=== PATIENT | female | born 1940 | race Caucasian/White ===

== ENCOUNTER 2019-03-23 13:21 | Inpatient (IN) ==
[2019-03-23] MEDS ORDERED: dilTIAZem Drip 125 MG/125 ML PREMIX IV ONE (13:45)
[2019-03-23] MEDS ORDERED: DILTIAZEM 25 MG/5 ML VIAL IV ONE (13:46)
[2019-03-23] MEDS ORDERED: DILTIAZEM 50 MG/10 ML VIAL IV STA (13:57)
[2019-03-23 14:03] LABS: Basophils # 0.1 10*3/uL (0.0-0.2); Basophils % 0.9 % (0.0-0.8); Eosinophils % 0.4 % (0.00-10.9); Hematocrit 44.4 VOL% (35.7-47.0); Hemoglobin 13.3 GM/DL (12.0-16.0); Immature Granulocytes % 0.6 %; Immature Granulocytes Absolute 0.05 #; Lymphocytes # 1.7 10*3/uL (1.4-4.0); Lymphocytes % 18.3 % (21.3-54.2); Mean Corpuscular Volume 80.9 FL (87-102); Mean Platelet Volume 12.3 FL (9.6-12.0); Monocytes % 8.6 % (1.7-12.7); NRBC # 0.02 10*3/uL; Neutrophils % 71.2 % (38.7-73.9); Platelet Count 245 T/CUMM (130-400); Red Blood Count 5.49 MC/CUMM (3.8-5.5); Red Cell Distribution Width 18.6 % (9.3-17.3); White Blood Count 9.1 T/CUMM (4-12)
[2019-03-23] MEDS ORDERED: SODIUM CHLORIDE 0.9% 500 ML IV STA (14:04)
[2019-03-23] MEDS: dilTIAZem Drip 125 MG/125 ML PREMIX IV SCH (14:05)
[2019-03-23 14:13] LABS: INR 1.4; PT Patient Result 14.7 SECS
[2019-03-23 14:59] LABS: Osmolality,Calculated 283.3 MOS/KG (273-304); Total Protein 7.6 G/DL (6.4-8.3)
[2019-03-23 15:15] LABS: Calcium 9.2 MG/DL (8.5-10.1)
[2019-03-23] MEDS ORDERED: cloNIDine 0.3 MG/24 HR PATCH TRANSDERM SCH (18:30)
[2019-03-23] MEDS: OXYBUTYNIN XL 15 MG TABLET PO SCH (21:07)
[2019-03-23] MEDS: PRIMIDONE 250 MG TABLET PO SCH (21:07)
[2019-03-23] MEDS: APIXABAN 5 MG TABLET PO SCH (21:07)
[2019-03-24 04:49] LABS: Basophils # 0.1 10*3/uL (0.0-0.2); Basophils % 0.8 % (0.0-0.8); Eosinophils # 0.2 10*3/uL (0.0-0.87); Eosinophils % 4.1 % (0.00-10.9); Hematocrit 35.9 VOL% (35.7-47.0); Hemoglobin 10.8 GM/DL (12.0-16.0); Immature Granulocytes % 0.2 %; Immature Granulocytes Absolute 0.01 #; Lymphocytes # 1.7 10*3/uL (1.4-4.0); Lymphocytes % 28.4 % (21.3-54.2); Mean Corpuscular HGB Conc 30.1 GM/DL (32-36); Mean Corpuscular Volume 80.5 FL (87-102); Monocytes % 16.4 % (1.7-12.7); Neutrophils % 50.1 % (38.7-73.9); Platelet Count 177 T/CUMM (130-400); Red Blood Count 4.46 MC/CUMM (3.8-5.5); Red Cell Distribution Width 17.9 % (9.3-17.3); White Blood Count 5.9 T/CUMM (4-12)
[2019-03-24 05:26] LABS: Risk Ratio 2.55; Thyroid Stimulating Hormone 6.4 uIU/ml (0.358-3.74)
[2019-03-24 05:35] LABS: Band Neutrophils 6 % (0-10); Eosinophils 4 % (0-10); Lymphocytes 32 % (20-55); Segmented Neutrophils 45 % (50-85); Total Cells Counted 100
[2019-03-24 05:36] LABS: Anisocytosis 1+; Ovalocytes 1+; Platelet Estimate Adequate
[2019-03-24] MEDS: dilTIAZem Drip 125 MG/125 ML PREMIX IV SCH ×2 (06:36→13:38)
[2019-03-24] MEDS: LEVOTHYROXINE 125 MCG TABLET PO SCH (09:01)
[2019-03-24] MEDS: CETIRIZINE 10 MG TABLET PO SCH (09:01)
[2019-03-24] MEDS: ESCITALOPRAM 10 MG TABLET PO SCH (09:01)
[2019-03-24] MEDS: PANTOPRAZOLE 20 MG TABLET PO SCH (09:01)
[2019-03-24] MEDS: OXYBUTYNIN XL 15 MG TABLET PO SCH ×2 (09:01→21:30)
[2019-03-24] MEDS: DONEPEZIL 10 MG TABLET PO SCH (09:01)
[2019-03-24] MEDS: FEXOFENADINE 180 MG TABLET PO SCH (09:01)
[2019-03-24] MEDS: SIMVASTATIN 20 MG TABLET PO SCH (09:01)
[2019-03-24] MEDS: DILTIAZEM CD 120 MG CAPSULE PO SCH (09:01)
[2019-03-24] MEDS: APIXABAN 5 MG TABLET PO SCH ×2 (09:01→21:30)
[2019-03-24] MEDS: ASPIRIN EC 81 MG TABLET PO SCH (10:54)
[2019-03-24 11:03] LABS: Calcium 8.6 MG/DL (8.5-10.1); Osmolality,Calculated 283.3 MOS/KG (273-304)
[2019-03-24 14:05] LABS: Apearance,Urine CLEAR (Clear); Bacteria,Urine Moderate /HPF (Few); Bilirubin,Urine Negative (Negative); Blood, Urine Negative (Negative); Glucose,Urine (UA) Negative (Negative); Ketones,Urine 5 mg/dL (Negative); Mucus,Urine Occasional /LPF (Occasional); Nitrite,Urine Positive (Negative); Protein,Urine 30 MG/DL; RBC,Urine 4 /HPF (0-4); Squamous Epithelial Cell,Urine Occasional /HPF (0-10); Urine Specific Gravity 1.058 (1.001-1.035); Urine Urobilinogen < 2.0 EU/DL (0.2-1.0); WBC,Urine 69 /HPF (0-6)
[2019-03-24 14:06] LABS: Urine Color Yellow (Yellow)
[2019-03-24] MEDS: FUROSEMIDE 40 MG/4 ML VIAL IV SCH (15:50)
[2019-03-24] MEDS: ACETAMINOPHEN/CODEINE 300-30 MG TABLET PO PRN (15:54)
[2019-03-24] MEDS: SOTALOL 80 MG TABLET PO SCH (21:30)
[2019-03-24] MEDS: PRIMIDONE 250 MG TABLET PO SCH (21:30)
[2019-03-25 04:48] LABS: Basophils % 0.9 % (0.0-0.8); Eosinophils # 0.3 10*3/uL (0.0-0.87); Eosinophils % 5.6 % (0.00-10.9); Hematocrit 36.8 VOL% (35.7-47.0); Hemoglobin 11.3 GM/DL (12.0-16.0); Immature Granulocytes % 0.2 %; Immature Granulocytes Absolute 0.01 #; Lymphocytes # 1.3 10*3/uL (1.4-4.0); Lymphocytes % 27.1 % (21.3-54.2); Mean Corpuscular HGB Conc 30.7 GM/DL (32-36); Mean Corpuscular Volume 79.8 FL (87-102); Mean Platelet Volume 12.8 FL (9.6-12.0); Monocytes % 13.3 % (1.7-12.7); Neutrophils % 52.9 % (38.7-73.9); Platelet Count 197 T/CUMM (130-400); Red Blood Count 4.61 MC/CUMM (3.8-5.5); Red Cell Distribution Width 18.1 % (9.3-17.3); White Blood Count 4.7 T/CUMM (4-12)
[2019-03-25 05:14] LABS: Calcium 8.2 MG/DL (8.5-10.1); Osmolality,Calculated 284.1 MOS/KG (273-304)
[2019-03-25 05:16] LABS: Risk Ratio 2.74; VLDL CHOLESTEROL 18.8 MG/DL
[2019-03-25] MEDS: cefTRIAXone 1,000 MG in SYRINGE 1 EACH IV SCH (08:22)
[2019-03-25] MEDS: FUROSEMIDE 40 MG/4 ML VIAL IV SCH ×2 (08:24→15:36)
[2019-03-25] MEDS: CETIRIZINE 10 MG TABLET PO SCH (08:25)
[2019-03-25] MEDS: SOTALOL 80 MG TABLET PO SCH ×2 (08:25→20:53)
[2019-03-25] MEDS: FEXOFENADINE 180 MG TABLET PO SCH (08:26)
[2019-03-25] MEDS: SACUBITRIL/VALSARTAN 49-51 MG TABLET PO SCH ×2 (08:26→20:54)
[2019-03-25] MEDS: ESCITALOPRAM 10 MG TABLET PO SCH (08:27)
[2019-03-25] MEDS: DILTIAZEM CD 120 MG CAPSULE PO SCH (08:27)
[2019-03-25] MEDS: DONEPEZIL 10 MG TABLET PO SCH (08:28)
[2019-03-25] MEDS: PANTOPRAZOLE 20 MG TABLET PO SCH (08:29)
[2019-03-25] MEDS: LEVOTHYROXINE 125 MCG TABLET PO SCH (08:30)
[2019-03-25] MEDS: APIXABAN 5 MG TABLET PO SCH ×2 (08:30→20:53)
[2019-03-25] MEDS: ASPIRIN EC 81 MG TABLET PO SCH (08:30)
[2019-03-25] MEDS: SIMVASTATIN 20 MG TABLET PO SCH (08:30)
[2019-03-25] MEDS: POTASSIUM CHLORIDE 20 MEQ TABLET PO SCH ×2 (08:31→21:01)
[2019-03-25] MEDS: OXYBUTYNIN XL 15 MG TABLET PO SCH ×2 (08:38→20:54)
[2019-03-25] MEDS ORDERED: POTASSIUM CHLORIDE 20 MEQ TABLET PO ONE (11:37)
[2019-03-25] MEDS: CYCLOBENZAPRINE 10 MG TABLET PO PRN (11:56)
[2019-03-25] MEDS: dilTIAZem Drip 125 MG/125 ML PREMIX IV SCH (13:32)
[2019-03-25] MEDS: ACETAMINOPHEN/CODEINE 300-30 MG TABLET PO PRN (16:25)
[2019-03-25] MEDS: PRIMIDONE 250 MG TABLET PO SCH (21:01)
[2019-03-26 04:51] LABS: Calcium 8.2 MG/DL (8.5-10.1); Osmolality,Calculated 280.4 MOS/KG (273-304)
[2019-03-26 05:28] LABS: Risk Ratio 2.83; VLDL CHOLESTEROL 30.8 MG/DL
[2019-03-26 05:35] LABS: Basophils # 0.1 10*3/uL (0.0-0.2); Basophils % 1.2 % (0.0-0.8); Eosinophils # 0.2 10*3/uL (0.0-0.87); Eosinophils % 4.8 % (0.00-10.9); Hematocrit 46.8 VOL% (35.7-47.0); Hemoglobin 13.5 GM/DL (12.0-16.0); Immature Granulocytes % 0.2 %; Immature Granulocytes Absolute 0.01 #; Lymphocytes # 1.6 10*3/uL (1.4-4.0); Lymphocytes % 32.8 % (21.3-54.2); Mean Corpuscular HGB Conc 28.8 GM/DL (32-36); Mean Corpuscular Volume 82.8 FL (87-102); Mean Platelet Volume 11.9 FL (9.6-12.0); Monocytes % 14.5 % (1.7-12.7); Neutrophils % 46.5 % (38.7-73.9); Platelet Count 212 T/CUMM (130-400); Red Blood Count 5.65 MC/CUMM (3.8-5.5); Red Cell Distribution Width 19.2 % (9.3-17.3)
[2019-03-26] MEDS ORDERED: TUBERCULIN SKIN TEST 0.1 ML SYRINGE INTRADERM ONE (07:37)
[2019-03-26] MEDS: SOTALOL 80 MG TABLET PO SCH ×2 (08:35→20:24)
[2019-03-26] MEDS: FUROSEMIDE 40 MG/4 ML VIAL IV SCH ×2 (08:35→15:19)
[2019-03-26] MEDS: DONEPEZIL 10 MG TABLET PO SCH (08:35)
[2019-03-26] MEDS: SACUBITRIL/VALSARTAN 49-51 MG TABLET PO SCH ×2 (08:35→20:23)
[2019-03-26] MEDS: OXYBUTYNIN XL 15 MG TABLET PO SCH ×2 (08:35→20:24)
[2019-03-26] MEDS: ESCITALOPRAM 10 MG TABLET PO SCH (08:35)
[2019-03-26] MEDS: cefTRIAXone 1,000 MG in SYRINGE 1 EACH IV SCH (08:35)
[2019-03-26] MEDS: ASPIRIN EC 81 MG TABLET PO SCH (08:35)
[2019-03-26] MEDS: FEXOFENADINE 180 MG TABLET PO SCH (08:35)
[2019-03-26] MEDS: DILTIAZEM CD 120 MG CAPSULE PO SCH (08:35)
[2019-03-26] MEDS: CETIRIZINE 10 MG TABLET PO SCH (08:36)
[2019-03-26] MEDS: POTASSIUM CHLORIDE 20 MEQ TABLET PO SCH ×2 (08:36→20:24)
[2019-03-26] MEDS: LEVOTHYROXINE 125 MCG TABLET PO SCH (08:36)
[2019-03-26] MEDS: APIXABAN 5 MG TABLET PO SCH ×2 (08:36→20:24)
[2019-03-26] MEDS: SIMVASTATIN 20 MG TABLET PO SCH (08:36)
[2019-03-26] MEDS: PANTOPRAZOLE 20 MG TABLET PO SCH (08:36)
[2019-03-26] MEDS: LIDOCAINE 5% PATCH TRANSDERM SCH (08:40)
[2019-03-26] MEDS: ACETAMINOPHEN/CODEINE 300-30 MG TABLET PO PRN ×2 (09:50→15:56)
[2019-03-26] MEDS: dilTIAZem Drip 125 MG/125 ML PREMIX IV SCH ×2 (10:45→13:45)
[2019-03-26] MEDS: PRIMIDONE 250 MG TABLET PO SCH (20:23)
[2019-03-27 05:56] LABS: Calcium 8.5 MG/DL (8.5-10.1); Osmolality,Calculated 282.4 MOS/KG (273-304)
[2019-03-27] MEDS: LIDOCAINE 5% PATCH TRANSDERM SCH (08:15)
[2019-03-27] MEDS: PANTOPRAZOLE 20 MG TABLET PO SCH (08:16)
[2019-03-27] MEDS: FEXOFENADINE 180 MG TABLET PO SCH (08:16)
[2019-03-27] MEDS: cefTRIAXone 1,000 MG in SYRINGE 1 EACH IV SCH (08:16)
[2019-03-27] MEDS: FUROSEMIDE 40 MG/4 ML VIAL IV SCH ×2 (08:16→15:45)
[2019-03-27] MEDS: POTASSIUM CHLORIDE 20 MEQ TABLET PO SCH ×2 (08:16→21:46)
[2019-03-27] MEDS: ESCITALOPRAM 10 MG TABLET PO SCH (08:16)
[2019-03-27] MEDS: CETIRIZINE 10 MG TABLET PO SCH (08:17)
[2019-03-27] MEDS: APIXABAN 5 MG TABLET PO SCH ×2 (08:17→21:46)
[2019-03-27] MEDS: ASPIRIN EC 81 MG TABLET PO SCH (08:17)
[2019-03-27] MEDS: DONEPEZIL 10 MG TABLET PO SCH (08:17)
[2019-03-27] MEDS: LEVOTHYROXINE 125 MCG TABLET PO SCH (08:17)
[2019-03-27] MEDS: SACUBITRIL/VALSARTAN 49-51 MG TABLET PO SCH ×2 (08:17→21:45)
[2019-03-27] MEDS: SOTALOL 80 MG TABLET PO SCH ×2 (08:17→21:47)
[2019-03-27] MEDS: DILTIAZEM CD 120 MG CAPSULE PO SCH (08:17)
[2019-03-27] MEDS: SIMVASTATIN 20 MG TABLET PO SCH (08:17)
[2019-03-27] MEDS: OXYBUTYNIN XL 15 MG TABLET PO SCH ×2 (08:17→21:46)
[2019-03-27] MEDS: dilTIAZem Drip 125 MG/125 ML PREMIX IV SCH ×2 (15:32→15:46)
[2019-03-27] MEDS: PRIMIDONE 250 MG TABLET PO SCH (21:46)
[2019-03-28] MEDS: SACUBITRIL/VALSARTAN 49-51 MG TABLET PO SCH ×2 (08:53→21:48)
[2019-03-28] MEDS: CETIRIZINE 10 MG TABLET PO SCH (08:54)
[2019-03-28] MEDS: LEVOTHYROXINE 125 MCG TABLET PO SCH (08:54)
[2019-03-28] MEDS: APIXABAN 5 MG TABLET PO SCH ×2 (08:54→21:49)
[2019-03-28] MEDS: ESCITALOPRAM 10 MG TABLET PO SCH (08:54)
[2019-03-28] MEDS: FEXOFENADINE 180 MG TABLET PO SCH (08:54)
[2019-03-28] MEDS: PANTOPRAZOLE 20 MG TABLET PO SCH (08:55)
[2019-03-28] MEDS: DILTIAZEM CD 120 MG CAPSULE PO SCH (08:55)
[2019-03-28] MEDS: SIMVASTATIN 20 MG TABLET PO SCH (08:55)
[2019-03-28] MEDS: ASPIRIN EC 81 MG TABLET PO SCH (08:55)
[2019-03-28] MEDS: DONEPEZIL 10 MG TABLET PO SCH (08:56)
[2019-03-28] MEDS: OXYBUTYNIN XL 15 MG TABLET PO SCH ×2 (08:56→21:49)
[2019-03-28] MEDS: SOTALOL 80 MG TABLET PO SCH ×2 (08:56→21:48)
[2019-03-28] MEDS: POTASSIUM CHLORIDE 20 MEQ TABLET PO SCH ×2 (08:56→21:48)
[2019-03-28] MEDS: LIDOCAINE 5% PATCH TRANSDERM SCH (08:57)
[2019-03-28] MEDS: ACETAMINOPHEN/CODEINE 300-30 MG TABLET PO PRN ×2 (08:57→16:13)
[2019-03-28] MEDS: FUROSEMIDE 40 MG/4 ML VIAL IV SCH ×2 (08:58→16:13)
[2019-03-28] MEDS: cefTRIAXone 1,000 MG in SYRINGE 1 EACH IV SCH (09:01)
[2019-03-28] MEDS: CYCLOBENZAPRINE 10 MG TABLET PO PRN (11:35)
[2019-03-28] MEDS: dilTIAZem Drip 125 MG/125 ML PREMIX IV SCH ×2 (11:37→14:28)
[2019-03-28] MEDS: PRIMIDONE 250 MG TABLET PO SCH (21:49)
[2019-03-29 04:07] LABS: Basophils # 0.1 10*3/uL (0.0-0.2); Basophils % 0.7 % (0.0-0.8); Eosinophils # 0.3 10*3/uL (0.0-0.87); Eosinophils % 2.7 % (0.00-10.9); Hematocrit 45.6 VOL% (35.7-47.0); Immature Granulocytes % 0.3 %; Immature Granulocytes Absolute 0.03 #; Lymphocytes # 1.3 10*3/uL (1.4-4.0); Lymphocytes % 13.9 % (21.3-54.2); Mean Corpuscular HGB Conc 30.7 GM/DL (32-36); Mean Corpuscular Volume 79.2 FL (87-102); Mean Platelet Volume 12.8 FL (9.6-12.0); Neutrophils % 72.4 % (38.7-73.9); Platelet Count 277 T/CUMM (130-400); Red Blood Count 5.76 MC/CUMM (3.8-5.5); Red Cell Distribution Width 18.7 % (9.3-17.3); White Blood Count 9.4 T/CUMM (4-12)
[2019-03-29 04:27] LABS: Albumin 3.2 G/DL (3.4-5.0); Bilirubin,Total 1.3 MG/DL (0.2-1.0); Osmolality,Calculated 285.4 MOS/KG (273-304); Total Protein 7.4 G/DL (6.4-8.3)
[2019-03-29 08:06] VITALS: BP 127/72
[2019-03-29] MEDS: cefTRIAXone 1,000 MG in SYRINGE 1 EACH IV SCH (08:15)
[2019-03-29] MEDS: FUROSEMIDE 40 MG/4 ML VIAL IV SCH (08:21)
[2019-03-29] MEDS: SACUBITRIL/VALSARTAN 49-51 MG TABLET PO SCH (09:06)
[2019-03-29] MEDS: ESCITALOPRAM 10 MG TABLET PO SCH (09:07)
[2019-03-29] MEDS: DILTIAZEM CD 120 MG CAPSULE PO SCH (09:07)
[2019-03-29] MEDS: POTASSIUM CHLORIDE 20 MEQ TABLET PO SCH (09:07)
[2019-03-29] MEDS: FEXOFENADINE 180 MG TABLET PO SCH (09:07)
[2019-03-29] MEDS: APIXABAN 5 MG TABLET PO SCH (09:07)
[2019-03-29] MEDS: SIMVASTATIN 20 MG TABLET PO SCH (09:08)
[2019-03-29] MEDS: CETIRIZINE 10 MG TABLET PO SCH (09:08)
[2019-03-29] MEDS: LEVOTHYROXINE 125 MCG TABLET PO SCH (09:08)
[2019-03-29] MEDS: PANTOPRAZOLE 20 MG TABLET PO SCH (09:08)
[2019-03-29] MEDS: LIDOCAINE 5% PATCH TRANSDERM SCH (09:09)
[2019-03-29] MEDS: DONEPEZIL 10 MG TABLET PO SCH (09:20)
[2019-03-29] MEDS: CYCLOBENZAPRINE 10 MG TABLET PO PRN (09:20)
[2019-03-29] MEDS: SOTALOL 80 MG TABLET PO SCH (09:20)
[2019-03-29] MEDS: ASPIRIN EC 81 MG TABLET PO SCH (09:20)
[2019-03-29] MEDS: OXYBUTYNIN XL 15 MG TABLET PO SCH (09:20)
[2019-03-29] MEDS ORDERED: FUROSEMIDE 40 MG TABLET PO SCH (16:00)
== END 2019-03-29 11:00 | disposition swing bed (61) | DRG 308 ==
LOC: N.ED 13:21 → N.EDINP 13:21 → SUATTDRO 16:59 → N.TELEN 18:00
PROVIDERS: ADMIT Phlebology; ATTEND Internal Medicine

== ENCOUNTER 2019-04-05 21:47 | Inpatient (IN) ==
[2019-04-05 23:20] LABS: Basophils # 0.1 10*3/uL (0.0-0.2); Basophils % 0.4 % (0.0-0.8); Hematocrit 53.8 VOL% (35.7-47.0); Hemoglobin 16.7 GM/DL (12.0-16.0); Immature Granulocytes % 0.8 %; Immature Granulocytes Absolute 0.19 #; Lymphocytes # 2.1 10*3/uL (1.4-4.0); Lymphocytes % 9.1 % (21.3-54.2); Mean Corpuscular Volume 77.7 FL (87-102); Monocytes % 8.4 % (1.7-12.7); NRBC # 0.08 10*3/uL; Neutrophils % 81.3 % (38.7-73.9); Platelet Count 266 T/CUMM (130-400); Red Blood Count 6.92 MC/CUMM (3.8-5.5); Red Cell Distribution Width 21.2 % (9.3-17.3); White Blood Count 22.8 T/CUMM (4-12)
[2019-04-05 23:21] LABS: INR 1.1; PT Patient Result 12.1 SECS
[2019-04-05 23:34] LABS: Albumin 3.1 G/DL (3.4-5.0); Bilirubin,Total 0.9 MG/DL (0.2-1.0); Calcium 10.1 MG/DL (8.5-10.1); Osmolality,Calculated 274.7 MOS/KG (273-304); Total Protein 8.8 G/DL (6.4-8.3)
[2019-04-05 23:40] LABS: Band Neutrophils 1 % (0-10); Lymphocytes 12 % (20-55); Segmented Neutrophils 77 % (50-85); Total Cells Counted 100
[2019-04-05 23:41] LABS: Anisocytosis 1+; Microcytosis 1+; Ovalocytes Slight; Polychromasia Few
[2019-04-05 23:42] LABS: Platelet Estimate Normal
[2019-04-06 00:24] LABS: Apearance,Urine Slightly Hazy (Clear); Bacteria,Urine Few /HPF (Few); Bilirubin,Urine Negative (Negative); Blood, Urine Negative (Negative); Glucose,Urine (UA) Negative (Negative); Hyaline Casts,Urine 4 /LPF (0-3); Ketones,Urine Negative (Negative); Mucus,Urine Occasional /LPF (Occasional); Nitrite,Urine Negative (Negative); Protein,Urine 30 MG/DL; Urine Color Amber (Yellow); Urine Specific Gravity 1.017 (1.001-1.035); Urine Urobilinogen < 2.0 EU/DL (0.2-1.0); WBC,Urine 11 /HPF (0-6)
[2019-04-06] MEDS ORDERED: cefTRIAXone 250 MG VIAL IV STA (00:36)
[2019-04-06] MEDS ORDERED: cefTRIAXone 1,000 MG in SYRINGE 1 EACH IV STA (00:38)
[2019-04-06] MEDS ORDERED: CYCLOBENZAPRINE 10 MG TABLET PO PRN (01:34)
[2019-04-06] MEDS ORDERED: MORPHINE 4 MG/1 ML VIAL IV STA (01:34)
[2019-04-06] MEDS ORDERED: MORPHINE 4 MG/1 ML VIAL IV PRN (01:38)
[2019-04-06] MEDS ORDERED: ACETAMINOPHEN 325 MG TABLET PO PRN (01:38)
[2019-04-06] MEDS ORDERED: ONDANSETRON 4 MG/2 ML VIAL IV PRN (01:38)
[2019-04-06 02:56] LABS: Hematocrit 50.6 VOL% (35.7-47.0); Hemoglobin 15.9 GM/DL (12.0-16.0)
[2019-04-06] MEDS: SODIUM CHLORIDE 0.9% 1,000 ML IV SCH ×2 (02:57→15:35)
[2019-04-06] MEDS: PIPERACILLIN/TAZOBACTAM 3,375 MG in SODIUM CHLORIDE 0.9% 100 ML IV SCH ×2 (03:55→10:50)
[2019-04-06 04:21] LABS: Basophils # 0.1 10*3/uL (0.0-0.2); Basophils % 0.6 % (0.0-0.8); Hematocrit 52.6 VOL% (35.7-47.0); Hemoglobin 16.4 GM/DL (12.0-16.0); Immature Granulocytes % 0.7 %; Immature Granulocytes Absolute 0.16 #; Lymphocytes # 1.7 10*3/uL (1.4-4.0); Lymphocytes % 7.7 % (21.3-54.2); Mean Corpuscular HGB Conc 31.2 GM/DL (32-36); Mean Corpuscular Volume 77.6 FL (87-102); Monocytes % 8.3 % (1.7-12.7); NRBC # 0.09 10*3/uL; Neutrophils % 82.7 % (38.7-73.9); Platelet Count 251 T/CUMM (130-400); Red Blood Count 6.78 MC/CUMM (3.8-5.5); Red Cell Distribution Width 21.3 % (9.3-17.3); White Blood Count 22.3 T/CUMM (4-12)
[2019-04-06 04:34] LABS: INR 1.1; PT Patient Result 12.4 SECS
[2019-04-06 04:51] LABS: Albumin 3.1 G/DL (3.4-5.0); Calcium 9.6 MG/DL (8.5-10.1); Osmolality,Calculated 278.5 MOS/KG (273-304); Total Protein 8.6 G/DL (6.4-8.3)
[2019-04-06 05:26] LABS: Anisocytosis 1+; Band Neutrophils 8 % (0-10); Lymphocytes 6 % (20-55); Platelet Estimate Adequate; Segmented Neutrophils 80 % (50-85); Total Cells Counted 100
[2019-04-06] MEDS ORDERED: SODIUM POLYSTYRENE SULFATE 15 GM/60 ML BOTTLE PO ONE (06:42)
[2019-04-06] MEDS ORDERED: CETIRIZINE 10 MG TABLET PO SCH (09:00)
[2019-04-06] MEDS ORDERED: PANTOPRAZOLE 40 MG VIAL IV SCH (09:00)
[2019-04-06] MEDS ORDERED: SOTALOL 80 MG TABLET PO SCH (09:00)
[2019-04-06] MEDS ORDERED: DILTIAZEM CD 120 MG CAPSULE PO SCH (09:00)
[2019-04-06] MEDS ORDERED: cloNIDine 0.3 MG/24 HR PATCH TRANSDERM SCH (09:00)
[2019-04-06] MEDS ORDERED: LIDOCAINE 5% PATCH TRANSDERM SCH (09:00)
[2019-04-06] MEDS ORDERED: DONEPEZIL 10 MG TABLET PO SCH (09:00)
[2019-04-06 10:52] LABS: Hemoglobin 16.1 GM/DL (12.0-16.0)
[2019-04-06] MEDS ORDERED: OXYBUTYNIN XL 15 MG TABLET PO SCH (11:20)
[2019-04-06] MEDS ORDERED: ESCITALOPRAM 10 MG TABLET PO SCH (11:20)
[2019-04-06] MEDS ORDERED: SODIUM CHLORIDE 0.9% 1,000 ML IV ONE ×2 (12:00→13:00)
[2019-04-06 12:45] LABS: ABG HCO3 15.3 MMOL/L (20-26); ABG Oxygen Saturation 99.1 % (95-100); ABG PH 7.382 (7.35-7.45); ABG TCO2 9.4 MMOL/L (23-27)
[2019-04-06 12:47] LABS: ABG PCO2 18.6 MM HG (35-48)
[2019-04-06] MEDS ORDERED: LORazepam 2 MG/1 ML VIAL ONE (13:29)
[2019-04-06 13:51] LABS: ABG Base Excess -13.8 MMOL/L (-2.5-2.5); ABG HCO3 13.9 MMOL/L (20-26); ABG Oxygen Saturation 99.9 % (95-100); ABG PH 7.321 (7.35-7.45); ABG TCO2 9.8 MMOL/L (23-27)
[2019-04-06 14:11] LABS: Basophils # 0.1 10*3/uL (0.0-0.2); Basophils % 0.4 % (0.0-0.8); Hematocrit 38.1 VOL% (35.7-47.0); Hemoglobin 11.7 GM/DL (12.0-16.0); Immature Granulocytes % 2.5 %; Immature Granulocytes Absolute 0.56 #; Lymphocytes # 4.7 10*3/uL (1.4-4.0); Lymphocytes % 21.1 % (21.3-54.2); Mean Corpuscular HGB Conc 30.7 GM/DL (32-36); Mean Corpuscular Volume 79.4 FL (87-102); Mean Platelet Volume 13.1 FL (9.6-12.0); Monocytes % 6.7 % (1.7-12.7); NRBC # 0.29 10*3/uL; Neutrophils % 69.3 % (38.7-73.9); Platelet Count 186 T/CUMM (130-400); White Blood Count 22.1 T/CUMM (4-12)
[2019-04-06] MEDS ORDERED: EPINEPHrine 1 MG/10 ML SYRINGE IV ONE (14:13)
[2019-04-06 14:14] LABS: Blood Urea Nitrogen 42 MG/DL (7-18); Calcium 6.9 MG/DL (8.5-10.1)
[2019-04-06] MEDS ORDERED: SODIUM BICARBONATE 50 MEQ/50 ML SYRINGE IV ONE (14:15)
[2019-04-06 14:16] LABS: Apearance,Urine CLEAR (Clear); Bilirubin,Urine Negative (Negative); Blood, Urine Negative (Negative); Glucose,Urine (UA) Negative (Negative); Hyaline Casts,Urine 1 /LPF (0-3); Ketones,Urine Negative (Negative); Mucus,Urine Occasional /LPF (Occasional); Nitrite,Urine Negative (Negative); Protein,Urine Negative; RBC,Urine 2 /HPF (0-4); Squamous Epithelial Cell,Urine Occasional /HPF (0-10); Urine Specific Gravity 1.019 (1.001-1.035); Urine Urobilinogen < 2.0 EU/DL (0.2-1.0); WBC,Urine <1 /HPF (0-6)
[2019-04-06 14:17] LABS: Urine Color Yellow (Yellow)
[2019-04-06] MEDS ORDERED: NOREPINEPHRINE 8 MG in SODIUM CHLORIDE 0.9% 242 ML IV PRN (14:21)
[2019-04-06] MEDS ORDERED: EPINEPHrine 1 MG/ML VIAL ONE (14:21)
[2019-04-06 14:27] LABS: Troponin I 0.652 NG/ML (0.00-0.045)
[2019-04-06 14:30] LABS: Glucose 5 MG/DL (74-106)
[2019-04-06 15:04] LABS: Band Neutrophils 6 % (0-10); Burr Cells 1+; Lymphocytes 11 % (20-55); Segmented Neutrophils 80 % (50-85); Total Cells Counted 100
[2019-04-06 15:05] LABS: Elliptocytes Few; Hypochromasia 2+; Microcytosis 1+; Ovalocytes Few; Platelet Estimate Adequate; Poikilocytosis 2+; Polychromasia Few; Reactive Lymphocytes Few; Schistocytes Few
[2019-04-06 16:16] VITALS: BP 167/78
[2019-04-06] MEDS ORDERED: PRIMIDONE 250 MG TABLET PO SCH (21:00)
[2019-04-06] MEDS ORDERED: SIMVASTATIN 20 MG TABLET PO SCH (21:00)
[2019-04-07] MEDS ORDERED: LEVOTHYROXINE 125 MCG TABLET PO SCH (06:30)
== END 2019-04-06 14:55 | disposition expired | DRG 813 ==
LOC: EDBD → EDUNIT# → N.ED 21:47 → N.EDINP 21:47 → N.5E 04-06 10:23 → N.CC 04-06 12:03